=== PATIENT | female | born 1960 | race Caucasian/White ===

== ENCOUNTER 2022-12-02 10:57 | Emergency (ER) | payer OTHER, SELFPAY ==
--- NOTE | 2022-12-02 | DI.CT.S_ITS ---
PROCEDURE: CT FACIAL BONES WO CON INDICATIONS: PAIN IN TOP OF MOUTH TECHNIQUE: Noncontrast 2.5 mm thick axial images acquired from the mandible through the frontal sinuses, with coronal and sagittal reformatting. For radiation dose reduction, the following was used: automated exposure control, adjustment of mA and/or kV according to patient size. COMPARISON: None. FINDINGS: Maxillofacial Bones: The zygomaticomaxillary complex is intact. The pterygoid plates and skull base are unremarkable. No evidence of fracture or lytic lesion. Mandible: The mandible is intact without fracture. Unremarkable temporomandibular articulation. Dentition: Unremarkable mandibular and maxillary dentition. Soft tissues: No maxillofacial soft tissue swelling. No radiopaque foreign bodies. Orbits: The osseous orbits, globes and ocular muscles unremarkable. Sinuses and Mastoid: The visualized portion of the paranasal sinuses and mastoids are normal. No air-fluid levels or wall fractures. The nasal vault is unremarkable. IMPRESSION: Unremarkable maxillofacial CT Approved by: Zeke Ashby M.D. on 12/02/2022 at 13:09
[2022-12-02 11:17] VITALS: BP 133/71; PULSE 67; RESP 16; TEMP 36.7; O2SAT 100; BMI 28.8
--- NOTE | 2022-12-02 13:08 | ED.DENTAL ---
HPI - Dental/Oral <Sid Rizvi PA-C - Last Filed: 12/02/22 14:23> General Chief complaint: Dental/Oral Stated complaint: pain in roof mouuth going into cheek bone Time Seen by Provider: 12/02/22 11:29 History of Present Illness HPI Narrative: This is a 62-year-old female presents to the emergency department due to upper mouth pain. Patient states that she was diagnosed with oral fingers after being seen by her dentist. She is reporting severe intermittent pain affecting the roof of her mouth affecting the left side and radiating to the left side of her head. She denies any visible lesions, nausea, vomiting, or any other concerning signs or symptoms. She states she was she was prescribed acyclovir by her dentist but has not significantly helped improve her symptoms. Patient also states that she was a history of breast cancer x2 in requesting a CT scan as she was concerning for metastasis. Related Data Previous Rx's Medication Instructions Recorded gabapentin 300 mg capsule 300 mg PO TID #30 caps 12/02/22 gabapentin 300 mg capsule 300 mg PO TID #30 caps 12/02/22 lidocaine HCl 2 % mucosal solution 1 applic mucous membrane Q8H PRN 12/02/22 (Lidocaine Viscous) pain #100 mL lidocaine HCl 2 % mucosal solution 1 applic mucous membrane Q8H PRN 12/02/22 (Lidocaine Viscous) pain #100 mL prednisone 20 mg tablet 20 mg PO TID 7 days #21 tabs 12/02/22 Review of Systems <Sid Rizvi PA-C - Last Filed: 12/02/22 14:23> Review of Systems Narrative: GENERAL: Denies chills, fatigue, malaise, fever, sweats. HEENT: Left-sided dental and head pain. RESPIRATORY: Denies dyspnea, cough, wheezing, hemoptysis, sputum. CARDIOVASCULAR: Denies chest pain, palpitations, orthopnea, edema, GASTROINTESTINAL: Denies nausea, vomiting, abdominal pain, diarrhea, constipation, melena. : Denies dysuria, frequency, incontinence, hematuria, urinary retention. MUSCULOSKELETAL: denies weakness, joint pain, or bony pain SKIN: Denies rash, skin lesions, or other NEUROLOGIC: Denies weakness, headache, numbness, change in speech, confusion, seizures, incoordination. PSYCHIATRIC: No concerning psychosocial issues. 12 point review of systems is negative except for those stated above Exam <Sid Rizvi PA-C - Last Filed: 12/02/22 14:23> Narrative Exam Narrative: GENERAL: Well-developed patient, in mild distress. HEAD: Atraumatic. Normocephalic. EYES: Pupils equal round and reactive. Extraocular motions intact. No scleral icterus. No injection or drainage. ENT: Nose without bleeding, purulent drainage. Throat without erythema, tonsillar hypertrophy or exudate. Airway patent. No visible lesions to the top of the mouth. NECK: Trachea midline. Non tender CARDIOVASCULAR: Regular rate and rhythm without murmurs, gallops, or rubs. RESPIRATORY: Clear to auscultation. Breath sounds equal bilaterally. No wheezes, rales, or rhonchi. GASTROINTESTINAL: Abdomen soft, non-tender, nondistended. EXTREMITIES: No edema or joint tenderness. BACK: Nontender without deformity or crepitance. No flank tenderness. NEURO: AOx3. SKIN: No rash or erythema of visible areas Initial Vital Signs Initial Vital Signs: Vital Signs Temperature 98.1 F 12/02/22 11:17 Pulse Rate 67 12/02/22 11:17 Respiratory Rate 16 12/02/22 11:17 Blood Pressure 133/71 12/02/22 11:17 Pulse Oximetry 100 12/02/22 11:17 Oxygen Delivery Method Room Air 12/02/22 11:17 <Saige Tavarez DO - Last Filed: 12/02/22 17:42> Initial Vital Signs Initial Vital Signs: Vital Signs Temperature 98.1 F 12/02/22 11:17 Pulse Rate 67 12/02/22 11:17 Respiratory Rate 16 12/02/22 11:17 Blood Pressure 133/71 12/02/22 11:17 Pulse Oximetry 100 12/02/22 11:17 Oxygen Delivery Method Room Air 12/02/22 11:17 Course <Sid Rizvi PA-C - Last Filed: 12/02/22 14:23> Orders Ordered: ED Orders 12/02/22 13:15 CT head/brain wo con Stat Vital Signs Vital signs: Vital Signs - 8 hr 12/02/22 11:17 12/02/22 14:21 Temperature 98.1 F 99.1 F Pulse Rate 67 60 Respiratory Rate 16 16 Blood Pressure 133/71 119/70 Pulse Oximetry 100 100 Oxygen Delivery Method Room Air <Saige Tavarez DO - Last Filed: 12/02/22 17:42> Orders Ordered: ED Orders 12/02/22 13:15 CT head/brain wo con Stat Vital Signs Vital signs: Vital Signs - 8 hr 12/02/22 11:17 12/02/22 14:21 Temperature 98.1 F 99.1 F Pulse Rate 67 60 Respiratory Rate 16 16 Blood Pressure 133/71 119/70 Pulse Oximetry 100 100 Oxygen Delivery Method Room Air MDM - Dental/Oral <Sid Rizvi PA-C - Last Filed: 12/02/22 14:23> Imaging Data CT scan - head: Radiologist's Impression: [address] [address] [address] Scan Report Signed Patient: Melissa Collins MR#: [id number] : 1960 Acct:[id number] Age/Sex: 62 / F Date of Service: 12/02/22 Loc: ED Accession Number: [id number] Procedure: CT head/brain wo con Ordering Provider: Sid Rizvi P.A-C PROCEDURE: CT HEAD/BRAIN WO CON INDICATIONS: Hx of breast cancer, head pain TECHNIQUE: Noncontrast 4.5 mm thick angled axial sections acquired from the foramen magnum to the vertex, with coronal and sagittal reformats. For radiation dose reduction, the following was used: automated exposure control, adjustment of mA and/or kV according to patient size. COMPARISON: None. FINDINGS: Image quality: Excellent. CSF spaces: Basal cisterns are patent. No extra-axial fluid collections. Ventricles are normal in size and shape. Brain: No midline shift. No intracranial masses or hemorrhage. Merino-white matter interface is normal. Skull and face: Calvarium and visualized facial bones are intact, without suspicious lesions. Sinuses: Visualized sinuses and mastoids are clear. IMPRESSION: Unremarkable CT of the brain Approved by: Zeke Ashby M.D. on 12/02/2022 at 12:59 MDM Narrative Medical decision making narrative: MDM * differential diagnosis includes but not limited to oral shingles, dental infection, peritonsillar abscess, viral/bacterial pharyngitis * Prior records reviewed: Patient has not been here for similar symptoms in the past. * My lab interpretation: None obtained * My imgaing interpretation: CT head and face showed no abnormalities. * Clinical Decision Rules/Scores evaluated: None * Independent discussions with: None ED Course: This is a 62-year-old female presenting to the emergency department due to continued dental pain after recently being diagnosed with oral shingles by her dentist. She is been started on a course of acyclovir. She is seen that pain has continued. Patient has a history of breast cancer x2 in strongly requested a CT scan which was ordered to rule out metastases. The CT scans were negative for any abnormalities. We will prescribed gabapentin, prednisone as well as viscous lidocaine as well as instructions to continue ibuprofen and Tylenol for pain control until she is able to follow up with a dentist. Shared Decision Making: Discussed plan with patient who is comfortable with the plan. Social Considerations: None Disposition: Discharged to home. Discharge Plan Departure Patient Disposition: Home Clinical Impression: Pain, dental Activity Restrictions/Additional Instructions: Thank you for coming to the [facility] Emergency Department today. Your CT scan showed no abnormalities. You may try this gabapentin as well as the mouthwash prescribed to help with the dental pain. Please follow up with your dentist for further management and care. I sent your medications to [facility] in [place]. I hope you feel better soon. Please follow up with your primary care provider within a week if your symptoms continue. If you do not have a primary care provider please contact the [facility] Resource line at [phone]. They will ask some questions about your medical history and help you get set up with a provider in the community. Prescriptions: New gabapentin 300 mg capsule 300 mg PO TID Qty: 30 0RF lidocaine HCl [Lidocaine Viscous] 2 % solution 1 applic mucous membrane Q8H PRN (Reason: pain) Qty: 100 0RF gabapentin 300 mg capsule 300 mg PO TID Qty: 30 0RF lidocaine HCl [Lidocaine Viscous] 2 % solution 1 applic mucous membrane Q8H PRN (Reason: pain) Qty: 100 0RF prednisone 20 mg tablet 20 mg PO TID 7 Days Qty: 21 0RF Referrals: Lauren Bolaños ARNP [Primary Care Provider] - Stand Alone Forms: Patient Portal/API ED Sign-out <Saige Tavarez, - Last Filed: 12/02/22 17:42> Cosign ED Attending Cosignature Attestation: I was immediately available in the department for consultation. Documentation has been reviewed.
--- NOTE | 2022-12-02 13:15 | DI.CT.S_ITS ---
PROCEDURE: CT HEAD/BRAIN WO CON INDICATIONS: Hx of breast cancer, head pain TECHNIQUE: Noncontrast 4.5 mm thick angled axial sections acquired from the foramen magnum to the vertex, with coronal and sagittal reformats. For radiation dose reduction, the following was used: automated exposure control, adjustment of mA and/or kV according to patient size. COMPARISON: None. FINDINGS: Image quality: Excellent. CSF spaces: Basal cisterns are patent. No extra-axial fluid collections. Ventricles are normal in size and shape. Brain: No midline shift. No intracranial masses or hemorrhage. Merino-white matter interface is normal. Skull and face: Calvarium and visualized facial bones are intact, without suspicious lesions. Sinuses: Visualized sinuses and mastoids are clear. IMPRESSION: Unremarkable CT of the brain Approved by: Zeke Ashby M.D. on 12/02/2022 at 12:59
[2022-12-02 14:21] VITALS: BP 119/70; PULSE 60; RESP 16; TEMP 37.3; O2SAT 100
== END 2022-12-02 14:28 | disposition home or self-care (01) ==
PROVIDERS: Emergency Provider Physician Assistant Medical; PCP Nurse Practitioner Family
DX: K08.89 Other specified disorders of teeth and supporting structures (principal)
CPT/HCPCS: 70450; 70486; 99283; 99284

== ENCOUNTER 2023-05-02 06:58 | Emergency (ER) | payer OTHER, SELFPAY ==
[2023-05-02] VITALS (8 sets, daily range): BP systolic 120–149; BP diastolic 61–77; PULSE 70–91; RESP 17–20; TEMP 36.5–37; O2SAT 96–100; BMI 29.0
--- NOTE | 2023-05-02 07:06 | ED_ITS ---
HPI - Extremity Problem General Chief complaint: Extremity Problem,Nontraumatic Stated complaint: left shoulder pain Time Seen by Provider: 05/02/23 07:01 History of Present Illness HPI Narrative: 62-year-old woman with complex medical history including to primary breast cancers with bilateral mastectomy. Hysterectomy at [facility] on April 10 with concerns for endometrial cancer secondary to tamoxifen. Complicated by abscess and sepsis, discharge home from [facility] on April 21. Currently on Flagyl and Levaquin for the intra-abdominal abscess presents with left shoulder pain that started at 1:00 a.m. on the . The pain is described as exquisite to the point that she has not able to move her shoulder at all. She is unable find a comfortable position. She has had multiple surgeries and used Tylenol essentially through all of the and finds that this pain is intolerable. She has not describing fevers but again has been taking Tylenol and is on antibiotics. She describes no trauma, has not been using the arm excessively and moving about beds while in the hospital, a number of years ago did have a rotator cuff injury to this arm but it has not bothered her. She has not complaining of headache, neck pain, dyspnea, upper thoracic pain. Related Data Previous Rx's Medication Instructions Recorded gabapentin 300 mg capsule 300 mg PO TID #30 caps 12/02/22 gabapentin 300 mg capsule 300 mg PO TID #30 caps 12/02/22 lidocaine HCl 2 % mucosal solution 1 applic mucous membrane Q8H PRN 12/02/22 (Lidocaine Viscous) pain #100 mL lidocaine HCl 2 % mucosal solution 1 applic mucous membrane Q8H PRN 12/02/22 (Lidocaine Viscous) pain #100 mL Allergies Allergy/AdvReac Type Severity Reaction Status Date / Time amoxicillin [From Augmentin] Allergy Rash Verified 05/02/23 07:05 clavulanic acid Allergy Rash Verified 05/02/23 07:05 [From Augmentin] Review of Systems Review of Systems Narrative: Pertinent positive and negative findings as per HPI Patient History Medical History (Updated 05/02/23 @ 10:12 by Stormy Millan MD) Breast cancer Surgical History (Updated 05/02/23 @ 07:32 by Stormy Millan MD) H/O bilateral mastectomy History of radical hysterectomy Social History Smoking Status: Never smoker Exam Initial Vital Signs Initial Vital Signs: Vital Signs Temperature 97.7 F 05/02/23 07:05 Pulse Rate 80 05/02/23 07:05 Respiratory Rate 17 05/02/23 07:05 Blood Pressure 132/77 05/02/23 07:05 Pulse Oximetry 100 05/02/23 07:05 Oxygen Delivery Method Room Air 05/02/23 07:05 General: Alert appropriate, in significant pain unable move the left arm due to shoulder pain Respiratory: Able to speak in full sentences, no obvious respiratory distress Skin: No obvious rashes, warm and dry Extremity: Left shoulder with fullness to the joint, exquisite tenderness with any type touch, unable to manipulate the shoulder secondary to pain. She is neurovascularly intact distally to this. There is no neck pain, paraspinous muscle spasm, trapezius muscle spasm. No obvious trauma no warmth or redness to palpation of the shoulder externally Abdomen: Mild lower abdominal tenderness without rebound or guarding consistent with her recovering intra-abdominal abscess. Surgical sites are clean and dry Neurologic: Grossly intact no obvious asymmetries or abnormalities Psych: appropriate insight and affect, cooperative Course Orders Ordered: Discontinued Medications Ketorolac Tromethamine (Ketorolac 30 Mg/Ml Vial) 15 mg IV NOW ONE Stop: 05/02/23 07:28 Last Admin: 05/02/23 07:35 Dose: 15 mg Documented By: KEVIN Lidocaine HCl (Lidocaine 2% Inj Sdv 5ml) 2 ml SUBCUT NOW ONE Stop: 05/02/23 09:31 Lidocaine HCl (Lidocaine 2% Inj Mdv 20ml) 2 ml SUBCUT NOW ONE Stop: 05/02/23 09:31 Last Admin: 05/02/23 09:28 Dose: 2 ml Documented By: PHILLIP Triamcinolone (Triamcinolone 40 Mg/Ml Vial) 40 mg INTRA-ANTONIO NOW ONE Stop: 05/02/23 08:50 Last Admin: 05/02/23 09:28 Dose: 40 mg Documented By: PHILLIP Vital Signs Vital signs: Vital Signs - 8 hr 05/02/23 10:28 Temperature 98.6 F Pulse Rate 70 Respiratory Rate 20 Blood Pressure 125/61 Pulse Oximetry 99 Oxygen Delivery Method Room Air MDM - Extremity (Nontraumatic) Lab Data 05/02/23 07:33 05/02/23 07:33 Labs: Lab Results 05/02/23 Range/Units 07:33 WBC 10.8 (4.5-11.0) X10^3/uL RBC 4.30 (4.0-5.2) X10^6/uL Hgb 13.0 (12.0-16.0) g/dL Hct 38.5 (36-46) % MCV 89.7 (80-100) fL MCH 30.2 (26-34) PG MCHC 33.7 (30-36) % RDW 15.3 H (11.6-14.8) % Plt Count 419 H (150-400) X10^3/uL Neut % (Auto) 74.1 (50-75) % Lymph % (Auto) 18.2 L (25-40) % Burnet % (Auto) 6.2 (3-14) % Eos % (Auto) 1.1 L (2-4) % Baso % (Auto) 0.4 (0-2) % Neut # (Auto) 8000 H (0107-2194) /uL Lymph # (Auto) 2000 (7614-8107) /uL Burnet # (Auto) 700 (0-900) /uL Eos # (Auto) 100 (0-450) /uL Baso # (Auto) 0 (0-100) /uL ESR 29 H (0-20) MM/HR Sodium 139 (137-145) mmol/L Potassium 4.3 (3.4-5.1) mmol/L Chloride 106 (98-107) mmol/L Carbon Dioxide 29 (22-32) mmol/L BUN 16 (7-17) mg/dL Creatinine 0.69 (0.52-1.04) mg/dL Estimated GFR > 60 (>60) mL/min BUN/Creatinine Ratio 23.2 H (6-22) Glucose 113 H (80-110) mg/dL Calcium 9.5 (8.4-10.2) mg/dL Total Bilirubin 0.6 (0.2-1.3) mg/dL AST 21 (14-36) IU/L ALT 20 (<35) IU/L Alkaline Phosphatase 60 (38-126) U/L C-Reactive Protein < 0.5 (<1.0) mg/dL Total Protein 7.5 (6.3-8.2) g/dL Albumin 4.1 (3.5-5.0) g/dL Globulin 3.4 (1.7-4.1) g/dL Albumin/Globulin Ratio 1.2 (1.0-2.8) MDM Narrative Medical decision making narrative: CC: Exquisite left shoulder pain Complicating co-morbidities: Recent radical hysterectomy, complicated by intra- abdominal abscess, currently on Levaquin and Flagyl, issues with bilateral lymphedema secondary to mastectomy Data collected from: patient Medical records reviewed: Extensive medical history collected from patient, records are not immediately available Differential considered: Septic joint, pathologic fracture, rotator cuff injury Exam documented above, pertinent findings include: Exquisite left shoulder pain unable to move the arm, no warmth or redness but significant shoulder effusion Lab Test results independently reviewed as above. Pertinent findings: CBC is unremarkable with white count at 10.8, H and H at 13 and 38.5. Sed rate is elevated at 29 Chemistries are reassuring. Normal renal function. C-reactive protein is less than 1 Imaging studies independently reviewed: No bony abnormalities, radiology interpretation is that of calcific bursitis Treatments: Reviewed findings with the patient. Septic arthritis and metastatic cancer lesions have essentially been ruled out. We talked about steroid injection for bursitis and significant pain, with shared decision-making we opted to proceed with this. Lidocaine and Kenalog injection is done. Procedures: Left Shoulder joint aspiration: 1 cc of 2% lidocaine used for topical anesthetic. 18 gauge needle introduced into the joint with no fluid returned. Left shoulder joint injection: Using a 27 gauge needle total of 2 cc/40 mg triamcinolone and 2 cc of 20% lidocaine injected to the joint with moderate relief of pain shortly after injection Patient tolerated both procedures well Left sling placement, placed for comfort, for his by nursing staff. Patient is neurovascularly intact and more comfortable after sling placement Discussion: 62-year-old woman with complex medical history presents with 3 days of increasing left shoulder and posterior deltoid pain. The shoulder itself is full but not red and warm. Aspiration did not return any significant fluid. Lab work is unremarkable. X-ray suggest calcific tendinitis. With shared decision-making we opted to try a steroid injection with which she has had success in the past. Immediately after injection with the lidocaine working she had significant improvement in range of motion. She has given a sling with instructions to use gentle [id number] exercises for the shoulder and follow up with her primary care doctor if symptoms are not improving. At this point I believe septic joint is far less likely, if symptoms do not improve advanced imaging with MRI may be the next step in definitive diagnosis for her. She does understand this, questions are answered she is safe for discharge Discharge Plan Departure Patient Disposition: Home Clinical Impression: Calcific bursitis of shoulder Instructions: DI for Bursitis Activity Restrictions/Additional Instructions: Thank you for coming in today It does look like the rest of your infection is responding appropriately to all of your antibiotics. With your shoulder, I was not able to aspirate any fluid or pus. The x-ray showed calcific bursitis with no abnormalities in the bones. We did a steroid injection into the shoulder joint with 40 mg of triamcinolone/Kenalog (steroid) as well as 2 cc of 2% lidocaine (anesthetic). The anesthetic portion certainly seem to make a difference. I have given you a sling for comfort but it is important to do some passive range of motion with the shoulder a couple of times a day to prevent frozen shoulder. Using 400 mg of ibuprofen (2 [id number] pills) and 1 Tylenol every 6 hours can be very helpful in controlling pain. Please do follow up with your primary care physician. If you continue to have issues with the shoulder the next step in the workup will likely be an MRI for more definitive diagnosis Prescriptions: No Action gabapentin 300 mg capsule 300 mg PO TID Qty: 30 0RF lidocaine HCl [Lidocaine Viscous] 2 % solution 1 applic mucous membrane Q8H PRN (Reason: pain) Qty: 100 0RF gabapentin 300 mg capsule 300 mg PO TID Qty: 30 0RF lidocaine HCl [Lidocaine Viscous] 2 % solution 1 applic mucous membrane Q8H PRN (Reason: pain) Qty: 100 0RF Referrals: Lauren Bolaños ARNP [Primary Care Provider] - Stand Alone Forms: Patient Portal/API
--- NOTE | 2023-05-02 07:27 | DI.RAD.S_ITS ---
PROCEDURE: XR SHOULDER LT MIN 2V INDICATIONS: swelling, pain, ? septic joint, ? bone mets TECHNIQUE: 3 views of the shoulder were acquired. COMPARISON: None. FINDINGS: Bones: No fractures or dislocations. No suspicious bony lesions. Visualized ribs appear intact. Soft tissues: Calcific bursitis. IMPRESSION: Calcific bursitis. Dictated by: Milton Rain M.D. on 05/02/2023 at 8:23 Approved by: Milton Rain M.D. on 05/02/2023 at 8:24
[2023-05-02] MEDS: KETOROLAC 30 MG/ML VIAL 15 MG IV (07:35)
[2023-05-02 07:45] LABS: Add Manual Diff / Slide Review NO; Basophils Absolute Auto 0 /uL (0-100); Basophils Percent Auto 0.4 % (0-2); Eosinophils Absolute Auto 100 /uL (0-450); Eosinophils Percent Auto 1.1 % (2-4); Hematocrit 38.5 % (36-46); Lymphocytes Absolute Auto 2000 /uL (1100-4500); Lymphocytes Percent Auto 18.2 % (25-40); Mean Corpuscular HGB Conc 33.7 % (30-36); Mean Corpuscular Hemoglobin 30.2 PG (26-34); Mean Corpuscular Volume 89.7 fL (80-100); Monocytes Absolute Auto 700 /uL (0-900); Monocytes Percent Auto 6.2 % (3-14); Neutrophils Absolute Auto 8000 /uL (1500-7000); Neutrophils Percent Auto 74.1 % (50-75); Platelet Count 419 X10^3/uL (150-400); Red Cell Distribution Width 15.3 % (11.6-14.8); White Blood Cell Count 10.8 X10^3/uL (4.5-11.0)
[2023-05-02 08:07] LABS: Erythrocyte Sedimentation Rate 29 MM/HR (0-20)
[2023-05-02 08:12] LABS: Alanine Aminotransferase 20 IU/L (<35); Albumin 4.1 g/dL (3.5-5.0); Albumin Globulin Ratio 1.2 (1.0-2.8); Alkaline Phosphatase 60 U/L (38-126); Aspartate Aminotransferase 21 IU/L (14-36); BUN Creatinine Ratio 23.2 (6-22); Bilirubin Total 0.6 mg/dL (0.2-1.3); Blood Urea Nitrogen 16 mg/dL (7-17); C-Reactive Protein Quant < 0.5 mg/dL (<1.0); Calcium 9.5 mg/dL (8.4-10.2); Carbon Dioxide 29 mmol/L (22-32); Chloride 106 mmol/L (98-107); Estimated Glomerular Filt Rate > 60 mL/min (>60); Globulin 3.4 g/dL (1.7-4.1); Glucose 113 mg/dL (80-110); HEMOLYSIS < 15 (0-50); Potassium 4.3 mmol/L (3.4-5.1); Sodium 139 mmol/L (137-145); Total Protein 7.5 g/dL (6.3-8.2)
[2023-05-02] MEDS: TRIAMCINOLONE 40 MG/ML VIAL INTRA-ARTI (09:28)
[2023-05-02] MEDS: LIDOCAINE 2% INJ MDV 20ML SUBCUT (09:28)
== END 2023-05-02 10:29 | disposition home or self-care (01) ==
PROVIDERS: Emergency Provider Emergency Medicine; PCP Nurse Practitioner Family
DX: M75.32 Calcific tendinitis of left shoulder (principal); Z90.710 Acquired absence of both cervix and uterus
CPT/HCPCS: 36415; 73030; 80053; 85025; 85651; 86140; 96374; 99284; J1885